=== PATIENT | male | born 1955 | race Caucasian/White ===

== ENCOUNTER → 2019-06-22 | Outpatient (CLI) | payer MEDICARE, OTHER ==
[2014-05-01 11:46] VITALS: BP 106/69
[~2019-06-22] MED LIST: ASPI-482 PO; ATOR10TA PO; CLOP75TA57 PO; FISH1CAP PO; IOHEXOL 300 MG/ML 75 ML VIAL. IV ONE; LIPITOR80 MG PO; LISI-338 PO; METO25TA2 PO; METO50TA4 PO; MULT-18 PO; OMEG300C PO
[2019-06-22 15:09] LABS: BASO % 1 % (0-3); EOS # 0.1 x10^3/uL (0.0-0.7); EOS % 2 % (0-3); HEMATOCRIT 46.9 % (39.0-53.0); HEMOGLOBIN 16.1 g/dL (13.0-17.5); LYMPH # 1.3 x10^3/uL (1.0-4.8); LYMPH % 23 % (24-48); MEAN CORPUSCULAR HEMOGLOBIN 32 pg (25-35); MEAN CORPUSCULAR HGB CONC 34 g/dL (31-37); MEAN CORPUSCULAR VOLUME 94 fL (79-100); MONO # 0.6 x10^3/uL (0.0-1.1); MONO % 10 % (0-9); NEUT # 3.8 x10^3uL (1.8-7.7); NEUT % 65 % (31-73); PLATELET COUNT 183 x10^3/uL (140-400); RED BLOOD COUNT 4.98 x10^6/uL (4.30-5.70); RED CELL DISTRIBUTION WIDTH 13.4 % (11.5-14.5); WHITE BLOOD COUNT 5.9 x10^3/uL (4.0-11.0)
[2019-06-22 15:11] LABS: ALBUMIN/GLOBULIN RATIO 1.1 (1.0-1.7); CALCIUM 8.8 mg/dL (8.5-10.1); CREATININE 1.1 mg/dL (0.7-1.3); GFR 67.2; POTASSIUM 4.9 mmol/L (3.5-5.1); TOTAL BILIRUBIN 1.2 mg/dL (0.2-1.0); TOTAL PROTEIN 7.6 g/dL (6.4-8.2)
--- NOTE | 2019-06-23 16:00 | RAD ---
CT SOFT TISSUE NECK W/CONTRAST History: Lump anterior neck. Technique: CT imaging was performed of the neck soft tissues with contrast. Coronal and sagittal reconstructions were performed. Exposure: One or more of the following individualized dose reduction techniques were utilized for this examination: 1. Automated exposure control 2. Adjustment of the mA and/or kV according to patient size 3. Use of iterative reconstruction technique. Comparison: None Findings: 0.7 x 0.6 cm hyperdense nodule with adjacent fat stranding within the anterior neck with the region of the patient's palpable concern. Superior to this region there is a mildly prominent submental lymph node measures 1.1 x 0.8 cm. No additional prominent lymph nodes. Normal appearance of the bilateral submandibular and parotid glands. Unremarkable thyroid gland. Imaged lung apices are unremarkable. Small right maxillary sinus mucous retention cysts or polyps. Mastoid air cells are clear. Imaged orbits and intracranial contents are unremarkable. Moderate multilevel cervical spondylosis most prominent C4-C5, C5-C6 and C6-C7. Impression: 1. Small nodule within the region of the patient's palpable abnormality in the anterior neck subcutaneous tissues, may represent reactive lymph node. Recommend continued clinical follow-up. If interval growth, recommend imaging follow-up and/or biopsy if indicated. Electronically signed by: Jhony Leigh DO (06/23/2019 3:57 PM) [id number]
== END | disposition home or self-care (01) ==
LOC: CT 14:18
PROVIDERS: ATTEND Family Medicine
DX: M48.02 Spinal stenosis, cervical region (principal); R22.1 Localized swelling, mass and lump, neck; R53.83 Other fatigue
CPT/HCPCS: 36415; 70491; 80053; 85025; Q9967

== ENCOUNTER 2020-06-06 14:24 | Inpatient (IN) | payer MEDICARE, OTHER ==
[~2020-06-06] VITALS: Ht 203.2 cm; Wt 91.7 kg
[~2020-06-06 14:24] MED LIST changes: -IOHEXOL 300 MG/ML 75 ML VIAL. IV ONE; -LISI-338 PO; +LISI-517 PO
[2020-06-06] MEDS ORDERED: IV NORMAL SALINE 1,000ML 1,000 ML IV ONE ×2 (14:45→15:30)
[2020-06-06] MEDS ORDERED: diphenhydrAMINE 50 MG/ML VIAL IVP ONE (14:45)
[2020-06-06] MEDS ORDERED: methylPREDNISolone SOD SUCC PF 125 MG/2 ML VIAL. IV ONE (14:45)
--- NOTE | 2020-06-06 14:51 | PHYS DOC ---
Past History Past Medical History: CAD, GERD, [place], Other Past Surgical History: No Surgical History, Other Smoking: Non-smoker, Quit Greater Than 1 Year Alcohol Use: None Drug Use: None General Adult EDM: Chief Complaint: ALLERGIC REACTION HPI: HPI: 64-year-old male presents emergency department today with shortness of breath throat swelling and a rash after being exposed to a food allergen (sunflower seeds). This all started just prior to arrival. He took 25 mg of oral Benadryl and an unknown amount of Zyrtec prior to arrival. He typically has an EpiPen but does not have one with him today. He is here with his daughter. He denies any fevers chills or cough. Location upper respiratory tract and skin. Duration constant. Mildly alleviated by oral Benadryl. Review of systems negative for chest pain. Positive for shortness of breath. He reports throat swelling but does not have stridor at this time. He denies tongue swelling. All other review of systems negative. 64-year-old male presenting with anaphylaxis from exposure to a food allergy. On arrival he is not in respiratory distress. He does have hives over his body. No stridor. No wheezing on pulmonary examination. Intramuscular epinephrine drawn off however the patient has coronary artery disease and history of [place] in the past. Epinephrine placed at bedside. In the interim we will give the patient IV Benadryl and IV corticosteroids. Multiple reexaminations taken place. Patient remains stable without worsening condition. Patient is still breathing comfortably without stridor and no wheezing on examination. His blood pressure did drop 1 time which improved with laying him flat. He is not having reflex tachycardia. This may have been related to the IV Benadryl given. While in the emergency department the patient improved substantially with improving feeling in his throat and improving rash. On final examination we took the oxygen off the patient and the patient's oxygen levels were in the 94% range. Because the patient does not have underlying lung disease, we elected to admit the patient for observation. In the interim we will get a chest x-ray and a D- dimer to exclude pulmonary embolism. I spoke to Dr. Cunha who accepts the patient for admission. Dr. Cunha will follow up on chest x-ray and D-dimer. Current Medications: Current Meds: Current Medications Medications (Trade) Dose Ordered Sig/Seb Start Time Stop Time Status Last Admin Dose Admin Diphenhydramine HCl (Benadryl) 25 mg 1X ONCE 06/06/20 14:45 06/06/20 14:46 DC 06/06/20 14:41 25 MG Epinephrine HCl (EPINEPHrine AMPULE) 0.3 mg 1X ONCE 06/06/20 14:30 06/06/20 14:34 DC Methylprednisolone Sodium Succinate (SOLU-Medrol 125MG VIAL) 125 mg 1X ONCE 06/06/20 14:45 06/06/20 14:46 DC 06/06/20 14:38 125 MG Sodium Chloride 1,000 ml @ 1,000 mls/hr 1X ONCE 06/06/20 14:45 06/06/20 15:44 06/06/20 14:41 1,000 MLS/HR Allergies: Allergies: Allergies Coded Allergies Type Severity Reaction Last Updated Verified No Known Drug Allergies 06/22/19 No Physical Exam: PE: Constitutional: Well developed, well nourished, no acute distress, non-toxic appearance. Not in respiratory distress. HENT: Normocephalic, atraumatic, bilateral external ears normal, oropharynx moist, no oral exudates, nose normal. [] No tongue swelling. Lips are not swollen. Mild swelling in the periorbital region bilaterally. Eyes: PERRLA, EOMI, conjunctiva normal, no discharge. [] Neck: Normal range of motion, no tenderness, supple, no stridor. [] Cardiovascular:Heart rate regular rhythm, no murmur [] Lungs & Thorax: Bilateral breath sounds clear to auscultation no wheezing. Abdomen: Bowel sounds normal, soft, no tenderness, no masses, no pulsatile masses. [] Skin: Warm, dry, no erythema, uticarial present on the upper extremities. Back: No tenderness, no CVA tenderness. [] Extremities: No tenderness, no cyanosis, no clubbing, ROM intact, no edema. [] Neurologic: Alert and oriented X 3, normal motor function, normal sensory function, no focal deficits noted. [] Psychologic: Affect normal, judgement normal, mood normal. [] EKG: EKG: [] Radiology/Procedures: Radiology/Procedures: [] Heart Score: Risk Factors: Risk Factors: DM, Current or recent (<one month) smoker, HTN, HLP, family history of CAD, obesity. Risk Scores: Score 0 - 3: 2.5% MACE over next 6 weeks - Discharge Home Score 4 - 6: 20.3% MACE over next 6 weeks - Admit for Clinical Observation Score 7 - 10: 72.7% MACE over next 6 weeks - Early Invasive Strategies Course & Med Decision Making: Course & Med Decision Making Pertinent Labs and Imaging studies reviewed. (See chart for details) [] Dragon Disclaimer: Dragon Disclaimer: This electronic medical record was generated, in whole or in part, using a voice recognition dictation system. Departure Departure: Impression: Primary Impression: Anaphylaxis Disposition: ADMITTED INPT THIS HOSP Condition: IMPROVED Referrals: VINAYAK CREWS MD (PCP) ANDREA NIELSEN MD Jun 06, 2020 14:51
[2020-06-06 15:29] LABS: BASO % 1 % (0-3); EOS # 0.1 x10^3/uL (0.0-0.7); EOS % 1 % (0-3); HEMATOCRIT 46.4 % (39.0-53.0); HEMOGLOBIN 15.5 g/dL (13.0-17.5); LYMPH # 1.4 x10^3/uL (1.0-4.8); LYMPH % 23 % (24-48); MEAN CORPUSCULAR HEMOGLOBIN 32 pg (25-35); MEAN CORPUSCULAR HGB CONC 33 g/dL (31-37); MEAN CORPUSCULAR VOLUME 96 fL (79-100); MONO # 0.6 x10^3/uL (0.0-1.1); MONO % 10 % (0-9); NEUT % 65 % (31-73); PLATELET COUNT 201 x10^3/uL (140-400); RED BLOOD COUNT 4.85 x10^6/uL (4.30-5.70); RED CELL DISTRIBUTION WIDTH 13.3 % (11.5-14.5); WHITE BLOOD COUNT 6.2 x10^3/uL (4.0-11.0)
[2020-06-06 15:40] LABS: CALCIUM 8.1 mg/dL (8.5-10.1); CREATININE 1.1 mg/dL (0.7-1.3); POTASSIUM 3.6 mmol/L (3.5-5.1)
--- NOTE | 2020-06-06 18:35 | RAD ---
INDICATION: Reason: hypoxia / Spl. Instructions: / History: COMPARISON: April 2014 FINDINGS: Single view of chest obtained. Cardiac silhouette is unremarkable. Degenerative changes the spine. Mild scoliotic curvature of spine . Air underneath right hemidiaphragm likely at loop of bowel in the region. No definite new region of consolidation. IMPRESSION: * No definite new region of airspace consolidation. Electronically signed by: Jay Cadet MD (06/06/2020 6:33 PM) [id number]
[2020-06-06 20:16] VITALS: BP 128/86
[2020-06-06] MEDS: ENOXAPARIN ** NOTE DOSE ** SYRINGE SQ SCH (21:00)
[2020-06-06] MEDS ORDERED: TAMS0.4C97 PO (21:07)
[2020-06-06] MEDS ORDERED: GABA-586 PO (21:07)
[2020-06-06] MEDS ORDERED: TRAZ-120 PO (21:07)
[2020-06-06] MEDS ORDERED: LORA0.5T21 PO (21:07)
[2020-06-06] MEDS ORDERED: diphenhydrAMINE HCL 25 MG CAPSULE PO PRN (21:15)
[2020-06-06] MEDS ORDERED: GABAPENTIN 300 MG CAPSULE. PO PRN (21:15)
[2020-06-06] MEDS ORDERED: diphenhydrAMINE HCL 25 MG CAPSULE PO ONE (21:15)
[2020-06-06] MEDS ORDERED: methylPREDNISolone SOD SUCC PF 40 MG/ML VIAL. IV ONE (21:15)
[2020-06-06 23:04] VITALS: BP 107/57
[2020-06-07 05:05] VITALS: BP 109/67
[2020-06-07 06:39] LABS: BASO % 0 % (0-3); EOS % 0 % (0-3); HEMATOCRIT 41.5 % (39.0-53.0); HEMOGLOBIN 14.1 g/dL (13.0-17.5); LYMPH # 0.8 x10^3/uL (1.0-4.8); LYMPH % 15 % (24-48); MEAN CORPUSCULAR HEMOGLOBIN 32 pg (25-35); MEAN CORPUSCULAR HGB CONC 34 g/dL (31-37); MEAN CORPUSCULAR VOLUME 95 fL (79-100); MONO # 0.2 x10^3/uL (0.0-1.1); MONO % 3 % (0-9); NEUT # 4.4 x10^3uL (1.8-7.7); NEUT % 82 % (31-73); PLATELET COUNT 201 x10^3/uL (140-400); RED BLOOD COUNT 4.36 x10^6/uL (4.30-5.70); RED CELL DISTRIBUTION WIDTH 13.2 % (11.5-14.5); WHITE BLOOD COUNT 5.3 x10^3/uL (4.0-11.0)
[2020-06-07 06:45] LABS: CALCIUM 7.7 mg/dL (8.5-10.1); GFR 74.8; POTASSIUM 4.3 mmol/L (3.5-5.1)
[2020-06-07] MEDS ORDERED: ASPIRIN ENTERIC COATED 81 MG TABLET.DR. PO SCH (09:00)
[2020-06-07] MEDS ORDERED: METOPROLOL SUCC 24HR ER 50 MG TAB.ER.24H. PO SCH (09:00)
[2020-06-07] MEDS ORDERED: TAMSULOSIN 0.4 MG CAP.ER.24H. PO SCH ×2 (09:00→21:00)
[2020-06-07] MEDS ORDERED: MULTIVITAMIN with MINERAL TABLET. PO SCH (09:00)
[2020-06-07] MEDS ORDERED: LISINOPRIL 5 MG TABLET. PO SCH (09:00)
[2020-06-07] MEDS ORDERED: LORazepam 0.5 MG TABLET PO SCH (09:00)
[2020-06-07] MEDS: ENOXAPARIN ** NOTE DOSE ** SYRINGE SQ SCH (09:22)
[2020-06-07] MEDS ORDERED: ATORVASTATIN CALCIUM 20 MG TABLET PO SCH (10:00)
[2020-06-07 10:46] VITALS: BP 109/70
[2020-06-07] MEDS ORDERED: IOHEXOL 350 MG/ML 100 ML VIAL. IV ONE (12:15)
[2020-06-07 14:59] VITALS: BP 121/77
--- NOTE | 2020-06-07 17:28 | RAD ---
PQRS Compliance Statement: One or more of the following individualized dose reduction techniques were utilized for this examinat ion: 1. Automated exposure control 2. Adjustment of the mA and/or kV according to patient size 3. Use of iterative reconstruction technique CT CHEST WITH CONTRAST, PULMONARY ANGIOGRAM History: Reason: sob and + d dimer / Spl. Instructions: / History: Comparison: None. Technique: Helical CT of the chest was performed after the administration of 100 cc of Omnipaque 300 intravenous contrast according to PE protocol. Axial and coronal reconstructions were obtained. 3- D MIP images were constructed to better evaluate the pulmonary arteries. Findings: Pulmonary arteries are adequately opacified. There is no evidence of pulmonary embolism. There is no thoracic aortic dissection. The thyroid is symmetric. There is coronary artery disease. T here is no adenopathy in the chest. The cardiac size is normal, no pericardial effusion. There is no pleural effusion. The central airways are patent. Incidental azygos fissure. Small ground glass opacity in the anterior left upper lobe may be infectious/inflammatory, image 44. There is a 4 mm noncalcified nodule in the lateral left lower lobe, image 74. There is minimal bilateral dependent atelectasis. Cholecystectomy. There is a 2 mm nonobstructing right renal calculus. Degenerative spondylosis of the thoracic spine. No acute bone abnormality. IMPRESSION: 1. There is no pulmonary embolus. 2. Small groundglass nodule in the left upper lobe may be infectious/inflammatory. 3. There is a 4 mm noncalcified nodule in the left lower lobe. Consider CT chest follow-up in 12 mon ths if patient has risk factors for lung malignancy, otherwise no follow-up is required per Fleischne r Society guidelines. 4. Nonobstructing right renal calculus. Electronically signed by: Denis Boyd MD (06/07/2020 5:25 PM) [id number]
[2020-06-07] MEDS ORDERED: METH4TAB2 PO ×3 (17:53→17:59)
--- NOTE | 2020-06-07 18:23 | NUR ---
Discharge Note: REBECCA PRO [address] Discharge instructions and discharge home medications reviewed with Patient and a copy given. All questions have been answered and understanding verbalized. Medrol pack 4mg called into [facility] pharmacy. Patient discharged to Home or Self Care with Self and ambulated to daughter's car without difficulty.
[2020-06-07] MEDS ORDERED: traZODone 50 MG TABLET. PO SCH (21:00)
--- NOTE | 2020-06-08 09:35 | HP ---
ADMIT DATE: HISTORY OF PRESENT ILLNESS: A 64-year-old male came in with increased shortness of breath, apparently had eaten sunflower seeds and he knew he was allergic to them, but he ate them accidentally. He began to have difficulty breathing. He had an anaphylactic reaction. His throat swelled up. He was short of breath and the patient was in severe distress when he came into the Emergency Room. He did not have his EpiPen with him. He did take some Benadryl to help relieve some of the symptoms, but he was still having difficulty breathing and some respiratory distress when he came in. Through the Emergency Room, he was given epinephrine intramuscularly; however, epinephrine was held up because of his history of coronary artery disease and like, although he was given IV Benadryl and corticosteroids, which seemed to help him. He was still somewhat having trouble with breathing, so he was admitted for observation. He did have some variation in his blood pressure and the patient was admitted to the hospital for observation. PAST MEDICAL HISTORY: Includes heart attack in 2008, coronary artery disease, cardiac catheterization, hypercholesterolemia, hypertension, vasectomy, bladder cancer, BCG therapy ended in 2019, starts chemo in 09/2020, BPH, urinary retention, degenerative disk disease, back pain, anxiety, alcohol use, history of smoking, although quit smoking in 1979, recent life stress, passed last week for COVID, smoking exposure, 3 years cancer, influenza vaccine up-to-date. Sleep difficulties. FAMILY HISTORY: Family members with diabetes, cardiovascular disease and hypercholesterolemia. ALLERGIES: SIGNIFICANT ALLERGY ANAPHYLAXIS TO SUNFLOWER SEEDS. SOCIAL HISTORY: Presently denies smoking, alcohol or drug use. REVIEW OF SYSTEMS: The patient denies any headaches, visual changes, blurred vision, double vision. Denies any loss of incontinence. Does have some mild shortness of breath, some wheezing occasionally, tightness in his throat with lip swelling. Neurologically stable. No problem with bowels or bladder at this time. PHYSICAL EXAMINATION: GENERAL: This is a pleasant white male, moderate amount of distress, fairly anxious. VITAL SIGNS: Initially, blood pressure approximately 78/35, respiratory rate 15, pulse 107, afebrile. He was at 90% on room air, 2 liters at 98. HEENT: The patient's head was atraumatic, normocephalic. Eyes: PERRLA. Mouth and throat were normal. The lips are slightly still swollen. Tongue is slightly swollen. NECK: Supple. LUNGS: Clear. CARDIOVASCULAR: Regular sinus rhythm, S1, S2, without murmur, rub, thrill, or extra heart sound. ABDOMEN: Soft, nontender, no rebounding, no guarding. Positive bowel sounds, no hepatosplenomegaly was noted. EXTREMITIES: No clubbing, cyanosis, nor edema. NEUROLOGIC: The patient was alert and oriented x 3. LABORATORY DATA: Significant elevation of D-dimer of 17, could be related to the anaphylaxis; however, due to increased shortness of breath, we will do a CTA on him on that. CBC was unremarkable. Chemistries outside of an elevated blood sugar of 125 was elevated, but otherwise sodium, potassium, BUN and creatinine all within normal limits. CTA was finally obtained. No PE. Does see a small ground glass nodule in the left upper lobe, may be infectious, 4 mm noncalcified nodule, left lower lobe. Consider CT followup in 12 months. Otherwise, the patient tolerated the hospitalization well as continued on his Benadryl, Medrol Dosepak. 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 If he has another anaphylactic reaction obviously told to get a medical alert bracelet for his sunflower seed allergy. VINAYAK CREWS MD DR: JUSTIN/jaden JOB#: [id number] / [id number]
== END 2020-06-07 18:23 | disposition home or self-care (01) | DRG 916 ==
LOC: ER 14:24 → 1 SOUTH 19:36
PROVIDERS: ADMIT Family Medicine; ATTEND Family Medicine
DX: T78.05XA Anaphylactic reaction due to tree nuts and seeds, initial encounter (principal); E78.00 Pure hypercholesterolemia, unspecified; I10 Essential (primary) hypertension; I25.10 Atherosclerotic heart disease of native coronary artery without angina pectoris; I25.2 Old myocardial infarction; N40.0 Benign prostatic hyperplasia without lower urinary tract symptoms; Z82.49 Family history of ischemic heart disease and other diseases of the circulatory system; Z83.3 Family history of diabetes mellitus; Z85.51 Personal history of malignant neoplasm of bladder; Z87.891 Personal history of nicotine dependence; Z92.21 Personal history of antineoplastic chemotherapy; F41.9 Anxiety disorder, unspecified; K21.9 Gastro-esophageal reflux disease without esophagitis; X58.XXXA Exposure to other specified factors, initial encounter; Y93.89 Activity, other specified; Y92.89 Other specified places as the place of occurrence of the external cause; Y99.8 Other external cause status; Z91.018 Allergy to other foods
CPT/HCPCS: 36415; 71045; 71275; 80048; 83880; 85025; 85379; 96361; 96374; 96375; J1200; J1650; J2920; J2930; Q0163; Q9967; 99285-25; J7030

== ENCOUNTER 2020-07-06 11:03 | Emergency (ER) | payer MEDICARE, OTHER ==
[~2020-07-06] VITALS: Ht 203.2 cm; Wt 91.7 kg
[~2020-07-06 11:03] MED LIST changes: +GABA-586 PO; +LORA0.5T21 PO; +METH4TAB2 PO; +TAMS0.4C97 PO; +TRAZ-120 PO
[2020-07-06] MEDS ORDERED: ASPIRIN CHEWABLE 81 MG TABLET. PO ONE (11:15)
--- NOTE | 2020-07-06 11:27 | EKG ---
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
[2020-07-06 11:34] LABS: BASO % 1 % (0-3); EOS # 0.1 x10^3/uL (0.0-0.7); EOS % 3 % (0-3); HEMATOCRIT 44.7 % (39.0-53.0); HEMOGLOBIN 15.4 g/dL (13.0-17.5); LYMPH # 1.4 x10^3/uL (1.0-4.8); LYMPH % 26 % (24-48); MEAN CORPUSCULAR HEMOGLOBIN 33 pg (25-35); MEAN CORPUSCULAR HGB CONC 35 g/dL (31-37); MEAN CORPUSCULAR VOLUME 95 fL (79-100); MONO # 0.5 x10^3/uL (0.0-1.1); MONO % 9 % (0-9); NEUT # 3.3 x10^3uL (1.8-7.7); NEUT % 61 % (31-73); PLATELET COUNT 175 x10^3/uL (140-400); RED BLOOD COUNT 4.72 x10^6/uL (4.30-5.70); RED CELL DISTRIBUTION WIDTH 13.4 % (11.5-14.5); WHITE BLOOD COUNT 5.4 x10^3/uL (4.0-11.0)
[2020-07-06 12:07] LABS: CALCIUM 8.8 mg/dL (8.5-10.1); CREATININE 0.9 mg/dL (0.7-1.3); GFR 84.4; POTASSIUM 4.2 mmol/L (3.5-5.1)
--- NOTE | 2020-07-06 12:09 | RAD ---
Chest radiograph 07/06/2020 11:36 AM INDICATION: Chest pain COMPARISON: June 06, 2020 TECHNIQUE: Frontal and lateral views of the chest are provided. FINDINGS: The cardiomediastinal silhouette is within normal limits. There are no pleural effusions. There is no pulmonary vascular congestion. There is no pneumothorax. The lungs are clear. No significant osseous abnormality is identified. IMPRESSION: No acute cardiopulmonary process. Electronically signed by: Geneva Lemos MD (07/06/2020 12:07 PM) [id number]
[2020-07-06] MEDS ORDERED: METHOCARBAMOL 500 MG TABLET PO ONE (13:30)
[2020-07-06 15:00] VITALS: BP 137/91
--- NOTE | 2020-07-06 15:17 | PHYS DOC ---
Past History Past Medical History: CAD, Cancer, High Cholesterol, Hypertension, Other Additional Past Medical Histor: BLADDER CANCER Past Surgical History: Other Additional Past Surgical Histo: BACK SURGERY; KNEE SURGERY Smoking: Non-smoker, Quit Greater Than 1 Year Alcohol Use: Occasionally Drug Use: None Adult General Chief Complaint Chief Complaint: CHEST PAIN HPI HPI Patient is a 64-year-old male who presents to the emergency room with chest tightness and a tingling sensation down to his right shoulder to mid arm. He states that he went to the gym earlier this morning and his workout went normal. On his way home from the gym he started having a tingling sensation and then noticed the chest tightness. He denies any associated symptoms. This does not feel like his prior heart attack. He does not have any kind of dizziness. He does not remember pulling anything at the gym. Review of Systems Review of Systems Complete ROS is negative unless otherwise documented in HPI Current Medications Current Medications Current Medications Medications (Trade) Dose Ordered Sig/Seb Start Time Stop Time Status Last Admin Dose Admin Aspirin (Aspirin Chewable) 324 mg 1X ONCE 07/06/20 11:15 07/06/20 11:16 DC 07/06/20 11:46 324 MG Methocarbamol (Robaxin) 500 mg 1X ONCE 07/06/20 13:30 07/06/20 13:31 DC 07/06/20 14:36 500 MG Allergies Allergies Allergies Coded Allergies Type Severity Reaction Last Updated Verified sunflower seed Allergy Severe Anaphylaxis 06/06/20 Yes Physical Exam Physical Exam General: Awake, alert, NAD. Well Nourished, well hydrated. Cooperative HEENT: Atraumatic, EOMI, PERRL, airway patent, moist oral mucosa Neck: Supple, trachea midline Respiratory: CTA bilaterally, normal effort, no wheezing/crackles CV: RRR, no murmur, cap refill <2 GI: Soft, nondistended, nontender, no masses MSK: No obvious deformities Skin: Warm, dry, intact Neuro: A&O x3, speech NL, sensory and motor grossly intact, no focal deficits Psych: Normal affect, normal mood, not suicidal or homicidal Current Patient Data Vital Signs Vital Signs Date Time Temp Pulse Resp B/P (MAP) Pulse Ox O2 Delivery O2 Flow Rate FiO2 07/06/20 13:00 65 16 127/86 (100) 96 Room Air 07/06/20 11:07 97.9 Lab Results Laboratory Tests Test 07/06/20 11:12 07/06/20 14:00 White Blood Count 5.4 x10^3/uL (4.0-11.0) Red Blood Count 4.72 x10^6/uL (4.30-5.70) Hemoglobin 15.4 g/dL (13.0-17.5) Hematocrit 44.7 % (39.0-53.0) Mean Corpuscular Volume 95 fL (79-100) Mean Corpuscular Hemoglobin 33 pg (25-35) Mean Corpuscular Hemoglobin Concent 35 g/dL (31-37) Red Cell Distribution Width 13.4 % (11.5-14.5) Platelet Count 175 x10^3/uL (140-400) Neutrophils (%) (Auto) 61 % (31-73) Lymphocytes (%) (Auto) 26 % (24-48) Monocytes (%) (Auto) 9 % (0-9) Eosinophils (%) (Auto) 3 % (0-3) Basophils (%) (Auto) 1 % (0-3) Neutrophils # (Auto) 3.3 x10^3uL (1.8-7.7) Lymphocytes # (Auto) 1.4 x10^3/uL (1.0-4.8) Monocytes # (Auto) 0.5 x10^3/uL (0.0-1.1) Eosinophils # (Auto) 0.1 x10^3/uL (0.0-0.7) Basophils # (Auto) 0.0 x10^3/uL (0.0-0.2) Sodium Level 140 mmol/L (136-145) Potassium Level 4.2 mmol/L (3.5-5.1) Chloride Level 104 mmol/L (98-107) Carbon Dioxide Level 28 mmol/L (21-32) Anion Gap 8 (6-14) Blood Urea Nitrogen 11 mg/dL (8-26) Creatinine 0.9 mg/dL (0.7-1.3) Estimated GFR (Cockcroft-Gault) 84.4 Glucose Level 117 mg/dL (70-99) H Calcium Level 8.8 mg/dL (8.5-10.1) Troponin I Quantitative < 0.017 ng/mL (0-0.055) < 0.017 ng/mL (0-0.055) DX-Wmm-R-Type Natriuretic Peptide 71 pg/mL (0-124) EKG EKG [] Radiology/Procedures Radiology/Procedures [] Heart Score Risk Factors: Risk Factors: DM, Current or recent (<one month) smoker, HTN, HLP, family history of CAD, obesity. Risk Scores: Risk Factors: DM, Current or recent (<one month) smoker, HTN, HLP, family history of CAD, obesity. Course & Med Decision Making Course & Med Decision Making Pertinent Labs and Imaging studies reviewed. (See chart for details) Patient is 64-year-old male presents to the emergency room with some chest tightness and at paresthesias in his right shoulder and upper arm. This could be related to a cervical radiculopathy as his paresthesias are his main symptom. Given patient's history of cardiac disease will order a cardiac work-up. EKG shows normal sinus rhythm without any ischemic changes. Troponin is negative. A delta troponin was done and is also negative. Patient feels some better while here in the emergency room. He does have a cardiology appointment at the beginning next week where they plan on doing a cardiac stress test. I discussed with the patient that if he developed any further chest pain he should come back to the emergency room. 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 Patient's test results and vitals while in the ED were fully reviewed and discussed with the patient. Patient is stable and at this time does not need admission to the hospital. We have discussed strict return precautions and the importance of following up with their Primary Care Physician. Patient stated understanding and was given an opportunity to ask any questions. Patient is in agreement with plan. Dragon Disclaimer Dragon Disclaimer This electronic medical record was generated, in whole or in part, using a voice recognition dictation system. Departure Departure: Impression: Primary Impression: Chest pain Disposition: 01 DC HOME SELF CARE/HOMELESS Condition: STABLE Referrals: VINAYAK CREWS MD (PCP) Patient Instructions: Chest Pain (Nonspecific) BOBY CAMPO MD Jul 06, 2020 15:17
[2020-07-06] MEDS ORDERED: DEXAMETHASONE SOD PHOS 10 MG/ML VIAL. IVP ONE (15:30)
== END 2020-07-06 15:32 | disposition home or self-care (01) ==
LOC: ER 11:03
DX: R07.89 Other chest pain (principal); R20.2 Paresthesia of skin; M25.511 Pain in right shoulder; I10 Essential (primary) hypertension; E78.00 Pure hypercholesterolemia, unspecified; I25.10 Atherosclerotic heart disease of native coronary artery without angina pectoris; Z87.891 Personal history of nicotine dependence; Z91.018 Allergy to other foods
CPT/HCPCS: 36415; 71046; 80048; 83880; 84484; 85025; 93005; 96374; 99285; J1100

== ENCOUNTER 2020-12-15 03:03 | Emergency (ER) | payer MEDICARE, OTHER ==
[~2020-12-15] VITALS: Ht 203.2 cm; Wt 91.7 kg
--- NOTE | 2020-12-15 03:10 | PHYS DOC ---
Past History Past Medical History: Alcoholism, CAD, Cancer, High Cholesterol, Hypertension, Kidney Stones, Other Additional Past Medical Histor: BLADDER CANCER Past Surgical History: Cholecystectomy, Other Additional Past Surgical Histo: BACK SURGERY; KNEE SURGERY Smoking: Non-smoker, Quit Greater Than 1 Year Alcohol Use: Occasionally Drug Use: None General Adult HPI: HPI: "...I thilnk .. I am having another kidney stone.. I ve had 2 the 3 prior episode.. in 2019 . I had to have lithotripsy.. to break one up.. It is here on my right.. it started hurting really bad about 1:00 am..." Patient is a 65 year old male who presents with above hx and complaints severe right flank pain radiating to his groin. Onset of pain started about 0100 hrs. Patient has had had blood in his urine. Patient denies any trauma. Patient does have a history of 2-3 prior kidney stones. Did have a lithotripsy for stones in 2019 in [place]. Patient denies any recent travel. Patient denies any specific ill contacts. No history of immunosuppression. Does have a history of diverticulitis and bladder cancer. Patient also has history of [place] in 2008, coronary artery disease with cath, hypercholesterol, hypertension, patient bladder cancer has been treated with BCG therapy starting in 2019. After which he was started on chemotherapy and 2020. Does have a history of BPH, urinary retention, degenerative disc disease, chronic back pain, anxiety, alcohol use, tobacco use, insomnia. Patient has been exposed to Covid. from Covid.In May of this year. Patient does have a significant allergy to sunflower seeds which causes anaphylaxis. Insomnia patient normally follows with Dr. Crews. Review of Systems: Review of Systems: Constitutional: Denies fever or chills Eyes: Denies change in visual acuity HENT: Denies nasal congestion or sore throat Respiratory: Denies cough or shortness of breath Cardiovascular: Denies chest pain or edema GI: Complains of right flank abdominal pain, nausea. Denies, vomiting, bloody stools or diarrhea : Complains of hematuria Musculoskeletal: Complains of right flank back pain Integument: Denies rash Neurologic: Denies headache, focal weakness or sensory changes Endocrine: Denies polyuria or polydipsia Lymphatic: Denies swollen glands Psychiatric: Denies depression or anxiety Family History: Family History: Noncontributory Current Medications: Current Meds: See nursing for home meds Allergies: Allergies: Allergies Coded Allergies Type Severity Reaction Last Updated Verified sunflower seed Allergy Severe Anaphylaxis 06/06/20 Yes Physical Exam: PE: Constitutional:in acute distress, non-toxic appearance. [] HENT: Normocephalic, atraumatic, bilateral external ears normal, oropharynx moist, no oral exudates, nose normal. [] Eyes: PERRLA, EOMI, conjunctiva normal, no discharge. [] Neck: Normal range of motion, no tenderness, supple, no stridor. [] Cardiovascular:Heart rate regular rhythm, no murmur [] Lungs & Thorax: Bilateral breath sounds equal apex on auscultation [] few scattered wheezes Abdomen: Bowel sounds decreased, soft, right flank tenderness, no masses, no pulsatile masses. [] Old surgical scar. Skin: Warm, dry, no erythema, no rash. [] Back: No tenderness, right CVA tenderness. [] Extremities: No tenderness, no cyanosis, no clubbing, ROM intact, no edema. No cording appreciated. No psoas sign. Neurologic: Alert and oriented X 3, normal motor function, normal sensory function, no focal deficits noted. [] Psychologic: Affect anxious, , judgement normal, mood normal. [] EKG: EKG: My interpretation EKG shows a sinus rhythm at 67 bpm. No findings of acute STEMI of contralateral changes. Time of EKG is 349 hours [] Radiology/Procedures: Radiology/Procedures: [[address] [address] IMAGING REPORT Signed PATIENT: REBECCA PRO ACCOUNT: [id number] : 1955 LOCATION: ER AGE: 65 SEX: M EXAM STATUS: REG ER ORD. PHYSICIAN: CASSIE BLANCO MD REASON: jose PROCEDURE: CT ABDOMEN PELVIS WO CONTRAST Study: CT abdomen/pelvis without intravenous contrast Indication: Abdominal pain. Comparison: Correlation is made to a CT chest from 06/07/2020 Technique: Helical CT imaging performed of the abdomen and pelvis without the use of intravenous contrast. Sagittal and coronal reformats were obtained. One or more of the following individualized dose reduction techniques were utilized for this examination: 1. Automated exposure control 2. Adjustment of the mA and/or kV according to patient size 3. Use of iterative reconstruction technique. Findings: Inherently limited evaluation without intravenous contrast. Unchanged 4 mm left lower lobe nodule. Smaller nodule along the left major fissure is unchanged as well. No focal hepatic parenchymal abnormality. Surgically absent gallbladder. Within normal limits biliary tree, pancreas, spleen and adrenal glands. Mild pelviectasis and ureteral dilatation on the right with surrounding edema. A 3.5 mm stone is seen within the base of the urinary bladder. Small nonobstructing intrarenal stone on the right. Incompletely characterized but cystic density focus within the mid left kidney on image 49 series 3 measuring no more than a centimeter. Mild circumferential urinary bladder wall thickening in the setting of a prominent prostate that measures 4.8 cm transverse. Median lobe hypertrophy. Colonic diverticulosis without diverticulitis. Mild constipation. Unremarkable appendix. Nonobstructed small bowel. Thickening of the gastric wall at the fundus and proximal body that is highly likely physiologic from underdistention given no wall thickening on the 06/07/2020 CT chest. Scattered calcific atherosclerosis and vessel tortuosity. Nonaneurysmal aorta. No lymphadenopathy. Small fat-containing bilateral inguinal hernias. Osteopenia. Multifocal degenerative changes. A few bone islands. Central canal stenosis appearing greatest at L4-L5. Multilevel neural foraminal stenosis. Impression: 1. Mild collecting system dilatation on the right with adjacent edema favored related to a recently passed 3.5 mm stone which is layering within the urinary bladder. Additional nonobstructing intrarenal stone on the right. 2. Mild constipation. 3. Prominence of the prostate gland and median lobe hypertrophy. The presence of urinary bladder wall thickening raises the question of chronic bladder outlet obstruction. 4. Left lower lobe pulmonary nodule 4 mm. Follow-up recommendations described on the 06/07/2020 CT chest. 5. Additional chronic observations as above. Electronically signed by: BOZENA HORNER MD (12/15/2020 4:42 AM) [facility] DICTATED AND SIGNED BY: BOZENA HORENR MD DATE: 12/15/20 0435 CC: VINAYAK CREWS MD; CASSIE BLANCO MD ~[facility] 0 ][address] [address] IMAGING REPORT Signed PATIENT: REBECCA PRO ACCOUNT: [id number] : 1955 LOCATION: ER AGE: 65 SEX: M EXAM STATUS: REG ER ORD. PHYSICIAN: CASSIE BLANCO MD REASON: abd. pain PROCEDURE: ACUTE ABDOMEN SERIES Study: XR ABDOMEN COMP ACUTE Indication: Abdominal pain. Comparison: None. Findings: Within normal limits cardiomediastinal silhouette and flower. Variant anatomy azygos fissure. No focal airspace abnormality, pleural effusion or pneumothorax. Gaseous distention of small and large bowel without pathologic dilatation. No pneumoperitoneum. Right upper quadrant surgical clips. Sigmoid curvature of the thoracolumbar spine on a background of multilevel spondylosis. Mild volume colonic stool burden. Impression: Nonobstructive bowel gas pattern. Electronically signed by: BOZENA HORNER MD (12/15/2020 4:35 AM) [facility] DICTATED AND SIGNED BY: BOZENA HORNER MD DATE: 12/15/20432 CC: VINAYAK CREWS MD; CASSIE BLANCO MD ~MTH0 0 Heart Score: C/O Chest Pain: N/A HEART Score for Chest Pain: HEART Score for Chest Pain Response (Comments) Value History Slighlty/Non-Suspicious 0 ECG Normal 0 Age > 65 2 Risk Factors 1 or 2 Risk Factors 1 Troponin < Normal Limit 0 Total 3 Risk Factors: Risk Factors: DM, Current or recent (<one month) smoker, HTN, HLP, family history of CAD, obesity. Risk Scores: Score 0 - 3: 2.5% MACE over next 6 weeks - Discharge Home Score 4 - 6: 20.3% MACE over next 6 weeks - Admit for Clinical Observation Score 7 - 10: 72.7% MACE over next 6 weeks - Early Invasive Strategies Course & Med Decision Making: Course & Med Decision Making Pertinent Labs and Imaging studies reviewed. (See chart for details) Patient reports clearing of his right flank pain. Patient requesting discharge. Patient to push fluids. Patient follow-up primary care. Patient follow-up with urology. Patient follow-up oncologist. Patient take Flomax daily if still having renal colic. Patient to take Tylenol and ibuprofen for pain more pain may take Vicoprofen up to 4 times a day. Patient to take Zofran 8 mg up to 4 times a day for nausea and vomiting. Patient return if any concerns. Impression: 1. Renal colic-right 2. History of bladder cancer 3. Hematuria [] Dragon Disclaimer: Dragon Disclaimer: This electronic medical record was generated, in whole or in part, using a voice recognition dictation system. Departure Departure: Referrals: VINAYAK CREWS MD (PCP) Scripts Tamsulosin Hcl (FLOMAX) 0.4 Mg Cap.er.24h 0.4 MG PO DAILY for renal colic, #30 CAP.SR Prov: CASSIE BLANCO MD 12/15/20 Hydrocodone/Ibuprofen (HYDROCODONE-IBUPROFEN 7.5-200 ) 1 Each Tablet 1 TAB PO PRN Q6HRS PRN for PAIN, #30 TAB 0 Refills Prov: CASSIE BLANCO MD 12/15/20 Ondansetron Hcl (ZOFRAN) 4 Mg Tablet 8 MG PO QIDPRN for nv, #30 TAB Prov: CASSIE BLANCO MD 12/15/20 Dragon Disclaimer This chart was dictated in whole or in part using Voice Recognition software in a busy, high-work load, and often noisy Emergency Department environment. It may contain unintended and wholly unrecognized errors or omissions. Dragon Disclaimer This chart was dictated in whole or in part using Voice Recognition software in a busy, high-work load, and often noisy Emergency Department environment. It may contain unintended and wholly unrecognized errors or omissions. CASSIE BLANCO MD Dec 15, 2020 03:10
[2020-12-15] MEDS ORDERED: IV RINGERS SOLUTION,LACTATED 1,000 ML IV SCH (03:30)
[2020-12-15] MEDS ORDERED: FAMOTIDINE 20 MG/2 ML VIAL IVP ONE (03:30)
[2020-12-15] MEDS ORDERED: ONDANSETRON PF 4 MG/2 ML VIAL. IVP ONE (03:30)
[2020-12-15] MEDS ORDERED: KETOROLAC 30 MG/ML VIAL. IVP ONE (03:30)
[2020-12-15] MEDS ORDERED: TAMSULOSIN 0.4 MG CAP.ER.24H. PO ONE (04:00)
[2020-12-15 04:29] LABS: BASO % 0 % (0-3); EOS # 0.1 x10^3/uL (0.0-0.7); EOS % 1 % (0-3); HEMATOCRIT 43.5 % (39.0-53.0); HEMOGLOBIN 14.8 g/dL (13.0-17.5); LYMPH # 1.1 x10^3/uL (1.0-4.8); LYMPH % 13 % (24-48); MEAN CORPUSCULAR HEMOGLOBIN 33 pg (25-35); MEAN CORPUSCULAR HGB CONC 34 g/dL (31-37); MEAN CORPUSCULAR VOLUME 98 fL (79-100); MONO # 0.6 x10^3/uL (0.0-1.1); MONO % 7 % (0-9); NEUT % 79 % (31-73); PLATELET COUNT 158 x10^3/uL (140-400); RED BLOOD COUNT 4.44 x10^6/uL (4.30-5.70); RED CELL DISTRIBUTION WIDTH 14.1 % (11.5-14.5); WHITE BLOOD COUNT 8.9 x10^3/uL (4.0-11.0)
--- NOTE | 2020-12-15 04:37 | RAD ---
Study: XR ABDOMEN COMP ACUTE Indication: Abdominal pain. Comparison: None. Findings: Within normal limits cardiomediastinal silhouette and flower. Variant anatomy azygos fissure. No focal airspace abnormality, pleural effusion or pneumothorax. Gaseous distention of small and large bowel without pathologic dilatation. No pneumoperitoneum. Right upper quadrant surgical clips. Sigmoid curvature of the thoracolumbar spine on a background of multilevel spondylosis. Mild volume colonic stool burden. Impression: Nonobstructive bowel gas pattern. Electronically signed by: BOZENA HORNER MD (12/15/2020 4:35 AM) [facility]
--- NOTE | 2020-12-15 04:45 | RAD ---
Study: CT abdomen/pelvis without intravenous contrast Indication: Abdominal pain. Comparison: Correlation is made to a CT chest from 06/07/2020 Technique: Helical CT imaging performed of the abdomen and pelvis without the use of intravenous cont rast. Sagittal and coronal reformats were obtained. One or more of the following individualized dose reduction techniques were utilized for this examinat ion: 1. Automated exposure control 2. Adjustment of the mA and/or kV according to patient size 3. Use of iterative reconstruction technique. Findings: Inherently limited evaluation without intravenous contrast. Unchanged 4 mm left lower lobe nodule. Smaller nodule along the left major fissure is unchanged as we ll. No focal hepatic parenchymal abnormality. Surgically absent gallbladder. Within normal limits biliary tree, pancreas, spleen and adrenal glands. Mild pelviectasis and ureteral dilatation on the right with surrounding edema. A 3.5 mm stone is seen within the base of the urinary bladder. Small nonobstructing intrarenal stone on the right. Incomple tely characterized but cystic density focus within the mid left kidney on image 49 series 3 measuring no more than a centimeter. Mild circumferential urinary bladder wall thickening in the setting of a prominent prostate that ravi ures 4.8 cm transverse. Median lobe hypertrophy. Colonic diverticulosis without diverticulitis. Mild constipation. Unremarkable appendix. Nonobstructe d small bowel. Thickening of the gastric wall at the fundus and proximal body that is highly likely p hysiologic from underdistention given no wall thickening on the 06/07/2020 CT chest. Scattered calcific atherosclerosis and vessel tortuosity. Nonaneurysmal aorta. No lymphadenopathy. Sm all fat-containing bilateral inguinal hernias. Osteopenia. Multifocal degenerative changes. A few bone islands. Central canal stenosis appearing gre atest at L4-L5. Multilevel neural foraminal stenosis. Impression: 1. Mild collecting system dilatation on the right with adjacent edema favored related to a recently passed 3.5 mm stone which is layering within the urinary bladder. Additional nonobstructing intrarena l stone on the right. 2. Mild constipation. 3. Prominence of the prostate gland and median lobe hypertrophy. The presence of urinary bladder wal l thickening raises the question of chronic bladder outlet obstruction. 4. Left lower lobe pulmonary nodule 4 mm. Follow-up recommendations described on the 06/07/[address] 5. Additional chronic observations as above. Electronically signed by: BOZENA HORNER MD (12/15/2020 4:42 AM) [facility]
[2020-12-15 04:46] LABS: BILIRUBIN,URINE NEG (NEG); CLARITY,URINE CLOUDY; COLOR,URINE AMBER; GLUCOSE,URINE NEG (NEG); NITRITE,URINE NEG (NEG); UROBILINOGEN,URINE 0.2 mg/dL (0.2 mg/dL)
[2020-12-15 04:47] LABS: RBC,URINE TNTC /HPF (0-2); WBC,URINE RARE /HPF (0-4)
[2020-12-15 04:48] LABS: BACTERIA,URINE 0 /HPF (0-FEW)
[2020-12-15 04:53] LABS: CREATININE 1.1 mg/dL (0.7-1.3); GFR 66.8; POTASSIUM 4.1 mmol/L (3.5-5.1)
[2020-12-15 05:02] LABS: ALBUMIN 3.5 g/dL (3.4-5.0); DIRECT BILIRUBIN 0.2 mg/dL (0.0-0.2); TOTAL PROTEIN 6.2 g/dL (6.4-8.2)
[2020-12-15 05:02] LABS: BARBITURATES NEG (NEG); BENZODIAZEPINES NEG (NEG); CANNABINOIDS NEG (NEG); COCAINE NEG (NEG); METHADONE NEG (NEG); OPIATES NEG (NEG); PHENCYCLIDINE NEG (NEG)
[2020-12-15 05:03] LABS: AMPHETAMINE/METHAMPHETAMINE NEG (NEG)
--- NOTE | 2020-12-15 05:11 | EKG ---
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
[2020-12-15] MEDS ORDERED: HYDR-1179 PO (06:40)
[2020-12-15] MEDS ORDERED: ONDA4TAB7 PO (06:40)
[2020-12-15] MEDS ORDERED: TAMS0.4C97 PO (06:49)
[2020-12-15 06:50] VITALS: BP 134/72
== END 2020-12-15 06:59 | disposition home or self-care (01) ==
LOC: ER 03:03
DX: N23 Unspecified renal colic (principal); R31.9 Hematuria, unspecified; Z85.51 Personal history of malignant neoplasm of bladder; I25.2 Old myocardial infarction; I25.10 Atherosclerotic heart disease of native coronary artery without angina pectoris; E78.00 Pure hypercholesterolemia, unspecified; I10 Essential (primary) hypertension; G89.29 Other chronic pain; Z87.442 Personal history of urinary calculi; Z90.49 Acquired absence of other specified parts of digestive tract; Z87.891 Personal history of nicotine dependence
CPT/HCPCS: 36415; 74022; 74176; 80048; 80076; 80307; 81001; 82550; 83690; 84484; 85025; 93005; 96361; 96374; 96375; 99285; J1885; J2405; J3490; J7120

== ENCOUNTER 2021-01-14 19:54 | Emergency (ER) | payer MEDICARE, OTHER ==
[~2021-01-14] VITALS: Ht 182.9 cm; Wt 88.0 kg
[~2021-01-14 19:54] MED LIST changes: +HYDR-1179 PO; +ONDA4TAB7 PO
--- NOTE | 2021-01-14 20:01 | PHYS DOC ---
Past History Past Medical History: Alcoholism, CAD, Cancer, High Cholesterol, Hypertension, Kidney Stones, Other Additional Past Medical Histor: BLADDER CANCER Past Surgical History: Cholecystectomy, Other Additional Past Surgical Histo: BACK SURGERY; KNEE SURGERY Smoking: Non-smoker, Quit Greater Than 1 Year Alcohol Use: None Drug Use: None General Adult HPI: HPI: ".. 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 and I noticed my right foot seem more weak.. I got chronic stuff with numbness of it due to disc injury and back surgery ... didn't think much about it because it returned to baseline numbness. that was about 3 pm.. then at about six I had some blurred vision. .. that went away... I just had my vision checked out in October after a episode.. everything checked out okay... but I got to thinking about it and felt I should get checked out..I got bladder cancer.. and go to a oncologist at [facility].. I ve had surgery, BCG.. and now on chemotherapy. and been seeing a cardiology at .. .. Patient is a 65 year old male who presents with complaints of foot pain at then Pt. follows with Dr. Crews. Review of Systems: Review of Systems: Constitutional: Denies fever or chills Eyes: Complaints of short episodic blurred vision HENT: Denies nasal congestion or sore throat Respiratory: Denies cough or shortness of breath Cardiovascular: Denies chest pain or edema GI: Denies abdominal pain, nausea, vomiting, bloody stools or diarrhea : Denies dysuria Musculoskeletal: Denies back pain or joint pain Integument: Denies rash Neurologic: Complaints of right foot weakness. Endocrine: Denies polyuria or polydipsia Lymphatic: Denies swollen glands Psychiatric: Denies depression or anxiety Family History: Family History: Noncontributory presentation Current Medications: Current Meds: See nursing for home meds Allergies: Allergies: Allergies Coded Allergies Type Severity Reaction Last Updated Verified sunflower seed Allergy Severe Anaphylaxis 06/06/20 Yes Physical Exam: PE: Constitutional: , no acute distress, non-toxic appearance. [] HENT: Normocephalic, atraumatic, bilateral external ears normal, oropharynx moist, no oral exudates, nose normal. [] Eyes: PERRLA, EOMI, conjunctiva normal, no discharge. No field loss appreciated Neck: Normal range of motion, no tenderness, supple, no stridor. [] No bruits Cardiovascular:Heart rate regular rhythm, no murmur, PMI slightly the left Lungs & Thorax: Bilateral breath sounds equal at apex on auscultation [] Abdomen: Bowel sounds normal, soft, no tenderness, no masses, no pulsatile masses. [] Skin: Warm, dry, no erythema, no rash. [] Back: No tenderness, no CVA tenderness. Old surgical scar Extremities: No tenderness, no cyanosis, no clubbing, ROM intact, no edema. No cording appreciated Neurologic: Alert and oriented X 3, as all extremities on request, does have distal sensory. No new focal deficits noted. DTRs +2 patella brachial. Does have sensory loss in the right foot which is chronic Psychologic: Affect anxious, judgement normal, mood normal. [] EKG: EKG: My interpretation of EKG shows a sinus rhythm at 68 bpm. No findings of acute STEMI of contralateral changes. Time of EKG is 2006 hrs. [] Radiology/Procedures: Radiology/Procedures: [place] [address] IMAGING REPORT Signed PATIENT: REBECCA PRO ACCOUNT: [id number] : 1955 LOCATION: ER AGE: 65 SEX: M EXAM STATUS: REG ER ORD. PHYSICIAN: CASSIE BLANCO MD REASON: sensory and motor changes- transient- Visual, Rt.foot weak PROCEDURE: CT HEAD WO CONTRAST CT head without contrast PQRS statement: CT scans at this facility use dose reduction including either automated exposure control, iterative reconstructions, and /or weight based radiation dosing via mA and kV modification when appropriate to reduce radiation dose to as low as reasonably achievable. HISTORY: Sensory and motor changes. Transient visual loss. right foot weakness. FINDINGS: No intracranial hemorrhage, mass, hydrocephalus, extra-axial fluid collections or infarction. No acute ischemic change. Orbits, mastoids and bones are unremarkable. IMPRESSION: No acute abnormality. Electronically signed by: Saúl Talbert MD (01/14/2021 9:13 PM) [facility] [place] DICTATED AND SIGNED BY: SAÚL TALBERT MD DATE: 01/14/212106 CC: VINAYAK CREWS MD; CASSIE BLANCO MD ~MTH0 0 [][address] [address] [address] [address] IMAGING REPORT Signed PATIENT: REBECCA PRO ACCOUNT: [id number] : 1955 LOCATION: ER AGE: 65 SEX: M EXAM STATUS: REG ER ORD. PHYSICIAN: CASSIE BLANCO MD REASON: dyspnea PROCEDURE: PORTABLE CHEST 1V AP chest x-ray HISTORY: Dyspnea. COMPARISON: Chest x-ray December 15, 2020 FINDINGS: Azygous right upper lobe. Heart size normal. Mild tortuosity aortic arch is stable. No pneumothorax, pulmonary opacities or pleural effusions. Mild thoracic scoliosis and lower thoracic disc osteophytes. IMPRESSION: No acute process. Stable exam. Electronically signed by: Saúl Talbert MD (01/14/2021 9:58 PM) [facility] [place] DICTATED AND SIGNED BY: SAÚL TALBERT MD DATE: 01/14/212156 CC: VINAYAK CREWS MD; CASSIE BLANCO MD ~MTH0 0 IMAGING REPORT Signed PATIENT: REBECCA PRO ACCOUNT: [id number] : 1955 LOCATION: ER AGE: 65 SEX: M EXAM STATUS: REG ER ORD. PHYSICIAN: CASSIE BLANCO MD REASON: sensory and motor changes- transient- Visual, Rt.foot weak PROCEDURE: CT HEAD WO CONTRAST CT head without contrast PQRS statement: CT scans at this facility use dose reduction including either automated exposure control, iterative reconstructions, and /or weight based radiation dosing via mA and kV modification when appropriate to reduce radiation dose to as low as reasonably achievable. HISTORY: Sensory and motor changes. Transient visual loss. right foot weakness. FINDINGS: No intracranial hemorrhage, mass, hydrocephalus, extra-axial fluid collections or infarction. No acute ischemic change. Orbits, mastoids and bones are unremarkable. IMPRESSION: No acute abnormality. Electronically signed by: Saúl Talbert MD (01/14/2021 9:13 PM) [facility] [place] DICTATED AND SIGNED BY: SAÚL TALBERT MD DATE: 01/14/212106 CC: VINAYAK CREWS MD; CASSIE BLANCO MD ~MTH0 0 Heart Score: C/O Chest Pain: No HEART Score for Chest Pain: HEART Score for Chest Pain Response (Comments) Value History Slighlty/Non-Suspicious 0 ECG Normal 0 Age > 65 2 Risk Factors 1 or 2 Risk Factors 1 Troponin < Normal Limit 0 Total 3 Risk Factors: Risk Factors: DM, Current or recent (<one month) smoker, HTN, HLP, family history of CAD, obesity. Risk Scores: Score 0 - 3: 2.5% MACE over next 6 weeks - Discharge Home Score 4 - 6: 20.3% MACE over next 6 weeks - Admit for Clinical Observation Score 7 - 10: 72.7% MACE over next 6 weeks - Early Invasive Strategies Course & Med Decision Making: Course & Med Decision Making Pertinent Labs and Imaging studies reviewed. (See chart for details) Patient requesting discharge. Declines admission at this time. Does have a systolic the scheduled for this afternoon. Advised patient to make sure his urologist know that he did receive aspirin at this visit. Risk and benefits discussed at deferring Eliquis or Lovenox treatment pending evaluation of DVT. Patient follow-up primary care discussed with elevated D-dimer 3.93. This must be followed up. Discussed with primary ED findings. Impression: 1. Rt. foot weakness- transient 2. Visual changes - transient 3. TIA? 4. Elevated D-dimer 3.93 5. History of bladder cancer-has post resection, BCG and now chemotherapy [] Dragon Disclaimer: Dragon Disclaimer: This electronic medical record was generated, in whole or in part, using a voice recognition dictation system. Departure Departure: Referrals: VINAYAK CREWS MD (PCP) [place]isa Disclaimer This chart was dictated in whole or in part using Voice Recognition software in a busy, high-work load, and often noisy Emergency Department environment. It may contain unintended and wholly unrecognized errors or omissions. Dragon Disclaimer This chart was dictated in whole or in part using Voice Recognition software in a busy, high-work load, and often noisy Emergency Department environment. It may contain unintended and wholly unrecognized errors or omissions. CASSIE BLANCO MD Jan 14, 2021 20:01
[2021-01-14] MEDS: ASPIRIN 325 MG TABLET PO ONE (20:45)
[2021-01-14] MEDS: IV RINGERS SOLUTION,LACTATED 1,000 ML IV SCH (20:46)
[2021-01-14 20:49] LABS: BASO # 0.1 x10^3/uL (0.0-0.2); BASO % 1 % (0-3); EOS # 0.2 x10^3/uL (0.0-0.7); EOS % 3 % (0-3); HEMATOCRIT 42.9 % (39.0-53.0); HEMOGLOBIN 14.8 g/dL (13.0-17.5); LYMPH # 1.5 x10^3/uL (1.0-4.8); LYMPH % 19 % (24-48); MEAN CORPUSCULAR HEMOGLOBIN 33 pg (25-35); MEAN CORPUSCULAR HGB CONC 35 g/dL (31-37); MEAN CORPUSCULAR VOLUME 96 fL (79-100); MONO # 0.7 x10^3/uL (0.0-1.1); MONO % 9 % (0-9); NEUT # 5.7 x10^3uL (1.8-7.7); NEUT % 69 % (31-73); PLATELET COUNT 159 x10^3/uL (140-400); RED BLOOD COUNT 4.46 x10^6/uL (4.30-5.70); RED CELL DISTRIBUTION WIDTH 13.5 % (11.5-14.5); WHITE BLOOD COUNT 8.3 x10^3/uL (4.0-11.0)
[2021-01-14 20:58] LABS: CALCIUM 8.5 mg/dL (8.5-10.1); CREATININE 0.8 mg/dL (0.7-1.3); GFR 96.4; POTASSIUM 3.9 mmol/L (3.5-5.1)
[2021-01-14 21:12] LABS: ALBUMIN 3.5 g/dL (3.4-5.0); DIRECT BILIRUBIN 0.2 mg/dL (0.0-0.2); MAGNESIUM 1.9 mg/dL (1.8-2.4); TOTAL BILIRUBIN 0.9 mg/dL (0.2-1.0); TOTAL PROTEIN 6.6 g/dL (6.4-8.2)
--- NOTE | 2021-01-14 21:15 | RAD ---
CT head without contrast PQRS statement: CT scans at this facility use dose reduction including either automated exposure cont rol, iterative reconstructions, and /or weight based radiation dosing via mA and kV modification when appropriate to reduce radiation dose to as low as reasonably achievable. HISTORY: Sensory and motor changes. Transient visual loss. right foot weakness. FINDINGS: No intracranial hemorrhage, mass, hydrocephalus, extra-axial fluid collections or infarctio n. No acute ischemic change. Orbits, mastoids and bones are unremarkable. IMPRESSION: No acute abnormality. Electronically signed by: Christ Talbert MD (01/14/2021 9:13 PM) [facility]
--- NOTE | 2021-01-14 21:45 | EKG ---
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
[2021-01-14 21:51] LABS: BARBITURATES NEG (NEG); BENZODIAZEPINES NEG (NEG); CANNABINOIDS NEG (NEG); COCAINE NEG (NEG); METHADONE NEG (NEG); OPIATES NEG (NEG); PHENCYCLIDINE NEG (NEG)
--- NOTE | 2021-01-14 22:00 | RAD ---
AP chest x-ray HISTORY: Dyspnea. COMPARISON: Chest x-ray December 15, 2020 FINDINGS: Azygous right upper lobe. Heart size normal. Mild tortuosity aortic arch is stable. No pneu mothorax, pulmonary opacities or pleural effusions. Mild thoracic scoliosis and lower thoracic disc o steophytes. IMPRESSION: No acute process. Stable exam. Electronically signed by: Christ Talbert MD (01/14/2021 9:58 PM) [facility]
[2021-01-14 22:12] LABS: CLARITY,URINE CLEAR; COLOR,URINE YELLOW
[2021-01-14 22:13] LABS: BACTERIA,URINE 0 /HPF (0-FEW); BILIRUBIN,URINE NEG (NEG); GLUCOSE,URINE NEG (NEG); NITRITE,URINE NEG (NEG); UROBILINOGEN,URINE 0.2 mg/dL (0.2 mg/dL); WBC,URINE 0 /HPF (0-4)
[2021-01-14 22:18] LABS: AMPHETAMINE/METHAMPHETAMINE NEG (NEG)
[2021-01-14] MEDS ORDERED: CONTRAST GIVEN. MC PRN (22:45)
[2021-01-14] MEDS: IOHEXOL 350 MG/ML 100 ML VIAL. IV ONE (23:52)
[2021-01-15] MEDS ORDERED: ENOXAPARIN 40 MG/0.4 ML SYRINGE. SQ ONE (00:15)
[2021-01-15] MEDS ORDERED: ENOXAPARIN ** NOTE DOSE ** SYRINGE SQ ONE (00:30)
[2021-01-15] MEDS: ALBUTEROL SULFATE 8GM INHALER. INH ONE (00:30)
--- NOTE | 2021-01-15 03:08 | RAD ---
EXAMINATION: CT Pulmonary Angiogram INDICATION: Reason: syncope,dyspnea, OMNI 350, 100ml / Spl. Instructions: / History: COMPARISON: Same day chest radiograph TECHNIQUE: Using helical technique, CT data from the thoracic inlet through the upper abdomen was obt ained during rapid IV contrast infusion. The examination was timed to the pulmonary arterial system t o generate a CT angiographic study. 3D MIPS, sagittal and coronal reformats were generated. FINDINGS: Vascular: The study is diagnostic to the level of the segmental pulmonary arteries. There is adequate opacifica tion of the pulmonary arteries. Pulmonary arteries: No evidence of acute or chronic pulmonary embolism. The main pulmonary artery is dilated in size up to 3.5 cm maximal diameter, this can be seen in the setting of pulmonary hypertens ion. Thoracic aorta: Normal in size. Pulmonary veins: Normal drainage into the left atrium. Coronary arteries: Normal origins. Moderate calcified coronary atherosclerosis. Systemic veins: Within normal limits. Heart: The heart is normal in size without evidence of right heart strain. No pericardial effusion. Chest: Lungs/Pleura: The pulmonary parenchyma appears within normal limits. Azygous lobe redemonstrated. Dep endent bibasilar subsegmental atelectasis. No suspicious pulmonary nodules are visualized. No pleura l effusion or focal pleural lesion. Mediastinum: No pathologic mediastinal or hilar adenopathy The visualized thyroid and the esophagus a re unremarkable Axilla/Soft Tissue: No supraclavicular or axillary adenopathy. Regional soft tissues are within brandon l limits. Upper abdomen: The visualized upper abdomen appears unremarkable. Bones: No evidence of acute fractures or aggressive osseous lesions. IMPRESSION: Vascular: 1. No evidence of pulmonary embolism to the level of the segmental pulmonary arteries. Chest: 1. No acute cardiopulmonary process. Electronically signed by: Jerry Velasco DO (01/15/2021 3:05 AM) [facility]
[2021-01-15] MEDS: APIXABAN 5 MG TABLET. PO SCH (03:19)
[2021-01-15] MEDS ORDERED: ANTI-COAG MONITOR BY PHARMACY. MC PRN (03:30)
[2021-01-15 03:38] VITALS: BP 124/66
[2021-01-15] MEDS ORDERED: ONDANSETRON PF 4 MG/2 ML VIAL. IVP ONE (04:00)
== END 2021-01-15 03:48 | disposition home or self-care (01) ==
LOC: ER 19:54
DX: R53.1 Weakness (principal); R79.1 Abnormal coagulation profile; I25.10 Atherosclerotic heart disease of native coronary artery without angina pectoris; E78.00 Pure hypercholesterolemia, unspecified; I10 Essential (primary) hypertension; F10.20 Alcohol dependence, uncomplicated; Z20.822 Contact with and (suspected) exposure to COVID-19; Z85.51 Personal history of malignant neoplasm of bladder; Z87.442 Personal history of urinary calculi; Z86.73 Personal history of transient ischemic attack (TIA), and cerebral infarction without residual deficits; Z90.49 Acquired absence of other specified parts of digestive tract; Z88.8 Allergy status to other drugs, medicaments and biological substances; Y90.9 Presence of alcohol in blood, level not specified
CPT/HCPCS: 36415; 70450; 71045; 71275; 80048; 80076; 80307; 81001; 82550; 83735; 83880; 84443; 84484; 85025; 85379; 85610; 85730; 87426; 93005; 94640; 96360; 96361; 99285; C9803; J7120; Q9967; U0003; 94664

== ENCOUNTER 2021-04-18 08:41 | Emergency (ER) | payer MEDICARE, OTHER ==
[~2021-04-18] VITALS: Ht 182.9 cm; Wt 87.3 kg
[~2021-04-18 08:41] MED LIST changes: -LISI-517 PO; +LISI5TAB15 PO
--- NOTE | 2021-04-18 08:48 | PHYS DOC ---
Past History Past Medical History: Alcoholism, CAD, Cancer, High Cholesterol, Hypertension, Kidney Stones, Other Additional Past Medical Histor: spinal stenosis, neuropathy Past Surgical History: Cancer Surgery Additional Past Surgical Histo: spinal surgery, cardia cath Smoking: Non-smoker, Quit Greater Than 1 Year Alcohol Use: Occasionally Drug Use: None Adult General HPI HPI Patient is a 65yo male presenting via POV for chest pain. He reports chest pain began at 2am in his left pectoralis region that radiates to his neck, left shoulder and left elbow. He took nitroglycerin without relief. When he woke up the pain was still present and he took 4 motrin with no relief, but was able to complete his morning chores before arriving to the ER. He states his chest pain is 4/10. He has had a previous [place] in 2008 with heart cath intervention of the middle circumflex artery. He takes lisinopril, a statin and 81mg aspirin daily. He endorses working out 5 to 6 days per week and has maintained an active lifestyle since working in the . PMH of covid in May of 2020 which he attributes new dizziness and double vision along with loss of taste and smell in July/August that is being worked up with neurology. He is concerned that his chest pain may be due to residual effects of covid or exacerbation of his heart problems. Review of Systems Review of Systems Fourteen body systems of review of systems have been reviewed. See HPI for pertinent positives and negative responses, other juárez all other systems are negative, non-pertinent or non-contributory Allergies Allergies Allergies Coded Allergies Type Severity Reaction Last Updated Verified sunflower seed Allergy Severe Anaphylaxis 01/14/21 Yes Physical Exam Physical Exam Constitutional: Well developed, well nourished, no acute distress, non-toxic appearance. HENT: Normocephalic, atraumatic, bilateral external ears normal, oropharynx moist, no oral exudates, nose normal. Eyes: PERRLA, EOMI, conjunctiva normal, no discharge. Neck: Normal range of motion, no tenderness, supple, no stridor. Cardiovascular: Heart rate regular, sinus rhythm, no murmurs rubs or gallops Lungs & Thorax: Bilateral breath sounds clear to auscultation Abdomen: Bowel sounds normal, soft, no tenderness, no masses, no pulsatile masses. Nonsurgical abdomen, no peritoneal signs Skin: Warm, dry, no erythema, no rash. Back: No tenderness, no CVA tenderness. Extremities: No tenderness, no cyanosis, no clubbing, ROM intact, no edema. Neurologic: Alert and oriented X 3, grossly normal motor & sensory function, no focal deficits noted. Psychologic: Anxious affect and mood Current Patient Data Vital Signs Vital Signs Date Time Temp Pulse Resp B/P (MAP) Pulse Ox O2 Delivery O2 Flow Rate FiO2 04/18/21 09:42 92 136/84 Vital Signs Date Time Temp Pulse Resp B/P (MAP) Pulse Ox O2 Delivery O2 Flow Rate FiO2 04/18/21 09:42 92 136/84 Lab Results Laboratory Tests Test 04/18/21 08:48 04/18/21 10:04 04/18/21 10:52 04/18/21 12:10 White Blood Count 6.4 x10^3/uL Red Blood Count 4.58 x10^6/uL Hemoglobin 14.8 g/dL Hematocrit 43.5 % Mean Corpuscular Volume 95 fL Mean Corpuscular Hemoglobin 32 pg Mean Corpuscular Hemoglobin Concent 34 g/dL Red Cell Distribution Width 13.3 % Platelet Count 136 x10^3/uL Neutrophils (%) (Auto) 70 % Lymphocytes (%) (Auto) 20 % Monocytes (%) (Auto) 5 % Eosinophils (%) (Auto) 4 % Basophils (%) (Auto) 0 % Neutrophils # (Auto) 4.5 x10^3uL Lymphocytes # (Auto) 1.3 x10^3/uL Monocytes # (Auto) 0.3 x10^3/uL Eosinophils # (Auto) 0.3 x10^3/uL Basophils # (Auto) 0.0 x10^3/uL Sodium Level 138 mmol/L Potassium Level 4.0 mmol/L Chloride Level 102 mmol/L Carbon Dioxide Level 25 mmol/L Anion Gap 11 Blood Urea Nitrogen 17 mg/dL Creatinine 1.1 mg/dL Estimated GFR (Cockcroft-Gault) 66.8 BUN/Creatinine Ratio 15 Glucose Level 258 mg/dL Calcium Level 8.5 mg/dL Total Bilirubin 1.1 mg/dL Aspartate Amino Transf (AST/SGOT) 19 U/L Alanine Aminotransferase (ALT/SGPT) 27 U/L Alkaline Phosphatase 109 U/L Troponin I High Sensitivity 532 ng/L 512 ng/L RI-Fnm-A-Type Natriuretic Peptide 167 pg/mL Total Protein 6.9 g/dL Albumin 3.5 g/dL Albumin/Globulin Ratio 1.0 Lipase 71 U/L Prothrombin Time 14.9 SEC Prothromb Time International Ratio 1.4 Activated Partial Thromboplast Time 28 SEC D-Dimer (Chiara) 9.34 mg/L SARS-CoV-2 Antigen (Rapid) Negative Current Medications Medications (Trade) Dose Ordered Sig/Seb Route PRN Reason Start Time Stop Time Status Last Admin Dose Admin Aspirin (Aspirin Chewable) 162 mg 1X ONCE PO 04/18/21 09:30 04/18/21 09:35 DC 04/18/21 09:42 Nitroglycerin (Nitrostat) 0.4 mg PRN Q5MIN PRN SL CHEST PAIN 04/18/21 09:30 04/18/21 09:42 Heparin Sodium/ Dextrose 250 ml @ 10 mls/hr CONT PRN IV SEE I/O RECORD 04/18/21 10:30 04/18/21 10:56 Heparin Sodium (Porcine) (Heparin Sodium) 4,000 unit 1X ONCE IV 04/18/21 10:30 04/18/21 10:32 DC 04/18/21 10:53 Heparin Sodium (Porcine) (Heparin Sodium) 2,200 unit PRN Q6HRS PRN IV FOR PTT LESS THAN 24 SECONDS 04/18/21 10:30 Iohexol (Omnipaque 350 Mg/ml) 100 ml 1X ONCE IV 04/18/21 11:45 04/18/21 11:46 DC 04/18/21 11:49 EKG EKG EKG ordered and interpreted by myself 0856 hrs. as sinus tachycardia at 104 bpm, unremarkable intervals, no axis deviation, no ischemic findings, no STEMI EKG ordered and interpreted by myself at 1114 hrs. as sinus rhythm at 80 bpm, unremarkable intervals, no axis deviation, no acute ischemic findings, no STEMI Radiology/Procedures Radiology/Procedures Exam Date: 04/18/2021 9:15 AM XR CHEST 1V Indication: Reason: chest pain / Spl. Instructions: / History: . Comparison: January 14, 2021 FINDINGS/ IMPRESSION: The cardiac silhouette and pulmonary vasculature are within normal limits. There is no focal consolidation, pleural effusion or pneumothorax. The visualized osseous structures are intact. Electronically signed by: Gwyn Baum MD (04/18/2021 9:42 AM) [id number] ///////////////////////// EXAMINATION: CTA chest. Technique: Axial images with coronal and sagittal reconstructions with MIP technique are performed of chest with angiogram protocol. 100 mL of Isovue-370 administered intravenously. One or more of the following radiation dose reduction techniques was used: automated exposure control, adjustment of mA and/or KV according to patient size, and/or utilization of iterative reconstruction technique. HISTORY: 65 years Male Reason: shob, chest pain, elevated d dimer . COMPARISON: January 14, 2021. FINDINGS: The pulmonary arteries are well opacified with no filling defects to suggest pulmonary embolism. The ascending aorta is a at the upper limits of normal in caliber measuring 3.9 cm in size. The timing of the bolus is focused on the pulmonary arteries and the aorta lumen is not well evaluated. The heart size is normal. No pericardial effusion. There is no pleural effusion. There is a no mediastinal, hilar or axillary mass or lymphadenopathy. The lungs demonstrate no significant consolidation, mass or suspicious nodule. The osseous structures demonstrate the multilevel degenerative osteophytes. There is mild the scoliotic curvature in the thoracic spine convex to the right at the midthoracic level and convex to the left around the thoracolumbar junction. IMPRESSION: No pulmonary embolism. The thoracic aorta is at the upper limits of normal in size measuring 3.9 cm in caliber. Electronically signed by: Kehinde Aguilar MD (04/18/2021 12:23 PM) [id number] Heart Score C/O Chest Pain: Yes HEART Score for Chest Pain: HEART Score for Chest Pain Response (Comments) Value History Highly Suspicious 2 ECG Normal 0 Age > 65 2 Risk Factors >3 Risk Factors or Hx CAD 2 Troponin >3 x Normal Limit 2 Total 8 Risk Factors: Risk Factors: DM, Current or recent (<one month) smoker, HTN, HLP, family history of CAD, obesity. Risk Scores: Risk Factors: DM, Current or recent (<one month) smoker, HTN, HLP, family history of CAD, obesity. Course & Med Decision Making Course & Med Decision Making ABCs unremarkable HPI, PE and workup concerning for NSTEMI in high-risk cardiac patient with improved but ongoing chest pain despite ER intervention with x3 nitro, a total of 324mg ASA Heparin drip started. [facility] contacted and case reviewed, patient accepted for transfer for cardiology consultation as he sees their group in outpatient setting and likely need for heart cath Given the high probability of imminent or life threatening deterioration of the patients condition without intervention, the patient was immediately assessed by myself and the nurse, and cardiac monitoring initiated. The patient was also placed on oxygen and continuous pulse oximetry initiated. During the course of the patients stay, I spent a considerable amount of time at the bedside performing serial re-evaluations of the patients hemodynamic and clinical status because of the recognized potential threat to life or limb in this condition. Clinical management of this patient involved high complexity decision making to assess, manipulate, and support vital organ system failure. I then had a chance to review all of the available laboratory and radiographic studies obtained today, and I also reviewed old records available to me at the time. Sequential vital signs were obtained. Critical care time noted below was time spent engaged in work directly related to the individual patients care, not including time performing procedures; however it does include time spent at the immediate bedside or elsewhere on the floor or unit. TOTAL CRITICAL CARE TIME ELAPSED: 40mins BODY SYSTEM AT HIGHEST RISK: Cardiac. Dragon Disclaimer Dragon Disclaimer This electronic medical record was generated, in whole or in part, using a voice recognition dictation system. Departure Departure: Impression: Primary Impression: Non-STEMI (non-ST elevated myocardial infarction) Disposition: [facility] ([facility]) Admitting Physician: Other (dr burnett) Condition: STABLE Referrals: VINAYAK CREWS MD (PCP) EN DEJESUS DO Apr 18, 2021 08:48
--- NOTE | 2021-04-18 09:19 | EKG ---
[address] [address] Test Date: 2021-04-18 Test Time: 08:46:31 Pat Name: REBECCA PRO Department: Room: Gender: M Medical Auditor: GRACIELA : 1955 Requested By: EN DEJESUS Order Number: [id number] Reading MD: Ted Calvo Measurements Intervals [place] Rate: 104 P: 46 ND: 128 QRS: 67 QRSD: 88 T: 30 QT: 308 QTc: 411 Interpretive Statements SINUS TACHYCARDIA Electronically Signed On 04-20-2021 16:12:18 PLATFORM CONSULTANT by Ted Calvo
[2021-04-18] MEDS ORDERED: NITROGLYCERIN SUBLINGUAL 0.4 MG BOTTLE OF 25. SL PRN (09:30)
[2021-04-18] MEDS ORDERED: ASPIRIN CHEWABLE 81 MG TABLET. PO ONE (09:30)
[2021-04-18 09:37] LABS: BASO % 0 % (0-3); EOS # 0.3 x10^3/uL (0.0-0.7); EOS % 4 % (0-3); HEMATOCRIT 43.5 % (39.0-53.0); HEMOGLOBIN 14.8 g/dL (13.0-17.5); LYMPH # 1.3 x10^3/uL (1.0-4.8); LYMPH % 20 % (24-48); MEAN CORPUSCULAR HEMOGLOBIN 32 pg (25-35); MEAN CORPUSCULAR HGB CONC 34 g/dL (31-37); MEAN CORPUSCULAR VOLUME 95 fL (79-100); MONO # 0.3 x10^3/uL (0.0-1.1); MONO % 5 % (0-9); NEUT # 4.5 x10^3uL (1.8-7.7); NEUT % 70 % (31-73); PLATELET COUNT 136 x10^3/uL (140-400); RED BLOOD COUNT 4.58 x10^6/uL (4.30-5.70); RED CELL DISTRIBUTION WIDTH 13.3 % (11.5-14.5); WHITE BLOOD COUNT 6.4 x10^3/uL (4.0-11.0)
--- NOTE | 2021-04-18 09:44 | RAD ---
Exam Date: 04/18/2021 9:15 AM XR CHEST 1V Indication: Reason: chest pain / Spl. Instructions: / History: . Comparison: January 14, 2021 FINDINGS/ IMPRESSION: The cardiac silhouette and pulmonary vasculature are within normal limits. There is no focal consolidation, pleural effusion or pneumothorax. The visualized osseous structures are intact. Electronically signed by: Gwyn Baum MD (04/18/2021 9:42 AM) [id number]
[2021-04-18 09:47] LABS: CALCIUM 8.5 mg/dL (8.5-10.1); CREATININE 1.1 mg/dL (0.7-1.3); GFR 66.8
[2021-04-18 09:59] LABS: ALBUMIN 3.5 g/dL (3.4-5.0); TOTAL BILIRUBIN 1.1 mg/dL (0.2-1.0); TOTAL PROTEIN 6.9 g/dL (6.4-8.2)
[2021-04-18] MEDS ORDERED: HEPARIN for IV BOLUS 10,000 UNIT/10 ML VIAL. IV ONE (10:30)
[2021-04-18] MEDS ORDERED: HEPARIN 25,000UTS/250ML PREMIX 250 ML IV PRN (10:30)
[2021-04-18] MEDS ORDERED: HEPARIN for IV BOLUS 10,000 UNIT/10 ML VIAL. IV PRN (10:30)
[2021-04-18] MEDS ORDERED: IOHEXOL 350 MG/ML 100 ML VIAL. IV ONE (11:45)
--- NOTE | 2021-04-18 11:59 | EKG ---
[address] [address] Test Date: 2021-04-18 Test Time: 11:05:48 Pat Name: REBECCA PRO Department: Room: Gender: M Tunnel Heading Inspector: GRACIELA : 1955 Requested By: EN DEJESUS Order Number: [id number] Reading MD: Ted Calvo Measurements Intervals [place] Rate: 80 P: 35 [place]: 142 QRS: 41 QRSD: 84 T: 22 QT: 334 QTc: 388 Interpretive Statements SINUS RHYTHM MILD NON SPECIFIC ST CHANGES Electronically Signed On 04-20-2021 16:10:06 NURSE CHEMICAL DEPENDENCY by Ted Calvo
--- NOTE | 2021-04-18 12:26 | RAD ---
Site ID: [id number] EXAMINATION: CTA chest. Technique: Axial images with coronal and sagittal reconstructions with MIP technique are performed of chest with angiogram protocol. 100 mL of Isovue-370 administered intravenously. One or more of the following radiation dose reduction techniques was used: automated exposure control , adjustment of mA and/or KV according to patient size, and/or utilization of iterative reconstructio n technique. HISTORY: 65 years Male Reason: shob, chest pain, elevated d dimer . COMPARISON: January 14, 2021. FINDINGS: The pulmonary arteries are well opacified with no filling defects to suggest pulmonary embolism. The ascending aorta is a at the upper limits of normal in caliber measuring 3.9 cm in size. The timing of the bolus is focused on the pulmonary arteries and the aorta lumen is not well evaluated. The heart size is normal. No pericardial effusion. There is no pleural effusion. There is a no medias tinal, hilar or axillary mass or lymphadenopathy. The lungs demonstrate no significant consolidation, mass or suspicious nodule. The osseous structures demonstrate the multilevel degenerative osteophytes. There is mild the scoliot ic curvature in the thoracic spine convex to the right at the midthoracic level and convex to the lef t around the thoracolumbar junction. IMPRESSION: No pulmonary embolism. The thoracic aorta is at the upper limits of normal in size measuring 3.9 cm i n caliber. Electronically signed by: Kehinde Aguilar MD (04/18/2021 12:23 PM) [id number]
[2021-04-19 01:40] VITALS: BP 151/94
== END 2021-04-19 02:13 | disposition short-term general hospital (02) ==
LOC: ER 08:41
DX: I21.4 Non-ST elevation (NSTEMI) myocardial infarction (principal); F10.20 Alcohol dependence, uncomplicated; I25.10 Atherosclerotic heart disease of native coronary artery without angina pectoris; E78.00 Pure hypercholesterolemia, unspecified; I10 Essential (primary) hypertension; Z20.822 Contact with and (suspected) exposure to COVID-19; Z87.442 Personal history of urinary calculi; Z87.891 Personal history of nicotine dependence; Z88.8 Allergy status to other drugs, medicaments and biological substances; Y90.9 Presence of alcohol in blood, level not specified
CPT/HCPCS: 36415; 71045; 71275; 80053; 83690; 83880; 84484; 85025; 85379; 85610; 85730; 87426; 93005; 96365; 96366; 96376; 99285; J1644; Q9967; U0003

== ENCOUNTER 2021-05-30 15:49 | Emergency (ER) | payer MEDICARE, OTHER ==
[~2021-05-30] VITALS: Ht 182.9 cm; Wt 87.3 kg
--- NOTE | 2021-05-30 16:15 | PHYS DOC ---
Past History Past Medical History: Alcoholism, CAD, Cancer, High Cholesterol, Hypertension, Kidney Stones, Other Additional Past Medical Histor: spinal stenosis, neuropathy Past Surgical History: Cancer Surgery Additional Past Surgical Histo: spinal surgery, cardia cath Smoking: Non-smoker, Quit Greater Than 1 Year Alcohol Use: Occasionally Drug Use: None Adult General Chief Complaint Chief Complaint: WEAKNESS/GENERALIZED HPI HPI Patient is a 65-year-old male presenting via POV for right lower extremity motor weakness. Reports onset of symptoms this morning at 3:30 AM when he woke up from sleep to use the bathroom. States he had more difficulty than usual ambulating. Reports symptoms were constant since onset and he " just felt off" today. States today is the 1 year anniversary of his passing away from [email or web address] and he has been more tearful than usual. Reports ongoing symptoms worried daughter whom he lives with prompting him to be transported to our facility for evaluation. Review of Systems Review of Systems Fourteen body systems of review of systems have been reviewed. See HPI for pertinent positives and negative responses, other juárez all other systems are negative, non-pertinent or non-contributory Allergies Allergies Allergies Coded Allergies Type Severity Reaction Last Updated Verified sunflower seed Allergy Severe Anaphylaxis 01/14/21 Yes Physical Exam Physical Exam General: Appears well, non toxic, and comfortable Skin: Warm, dry. Normal for ethnicity. HEENT: Atraumatic. PERRLA. Moist mucous membranes. Neck: Trachea midline. Normal ROM. Respiratory: Normal WOB. CTAB w/o w/r/r. No tachypnea. Cardiovascular: Regular rate and rhythm. Normal peripheral perfusion. No edema. Abdomen: Soft. Non tender. No distension. Back: Normal ROM. Musculoskeletal: No swelling or deformity. Neuro: Alert and oriented x 4. MAEE. GCS 15. Normal FNF. Negative pronator drift. Normal heel to powell. Normal Kelli. CN II-XII intact. Normal strength and sensation. Normal speech. Psych: Tearful affect, depressed mood Current Patient Data Vital Signs Vital Signs Date Time Temp Pulse Resp B/P (MAP) Pulse Ox O2 Delivery O2 Flow Rate FiO2 05/30/21 15:50 98.3 93 16 110/84 (93) 98 Room Air Vital Signs Date Time Temp Pulse Resp B/P (MAP) Pulse Ox O2 Delivery O2 Flow Rate FiO2 05/30/21 19:50 80 23 137/90 (106) 97 Room Air 05/30/21 15:50 98.3 Lab Results Laboratory Tests Test 05/30/21 16:20 05/30/21 16:28 05/30/21 18:00 White Blood Count 4.4 x10^3/uL Red Blood Count 4.24 x10^6/uL Hemoglobin 13.8 g/dL Hematocrit 40.0 % Mean Corpuscular Volume 95 fL Mean Corpuscular Hemoglobin 33 pg Mean Corpuscular Hemoglobin Concent 35 g/dL Red Cell Distribution Width 13.3 % Platelet Count 126 x10^3/uL Neutrophils (%) (Auto) 62 % Lymphocytes (%) (Auto) 24 % Monocytes (%) (Auto) 12 % Eosinophils (%) (Auto) 1 % Basophils (%) (Auto) 0 % Neutrophils # (Auto) 2.8 x10^3uL Lymphocytes # (Auto) 1.1 x10^3/uL Monocytes # (Auto) 0.5 x10^3/uL Eosinophils # (Auto) 0.0 x10^3/uL Basophils # (Auto) 0.0 x10^3/uL Sodium Level 138 mmol/L Potassium Level 3.7 mmol/L Chloride Level 102 mmol/L Carbon Dioxide Level 28 mmol/L Anion Gap 8 Blood Urea Nitrogen 11 mg/dL Creatinine 0.9 mg/dL Estimated GFR (Cockcroft-Gault) 84.2 Glucose Level 97 mg/dL Calcium Level 8.6 mg/dL Troponin I High Sensitivity 772 ng/L Ethyl Alcohol Level < 10 mg/dL Prothrombin Time 11.7 SEC Prothromb Time International Ratio 1.1 Activated Partial Thromboplast Time 24 SEC Influenza Type A (Rapid) Negative Influenza Type B (Rapid) Negative SARS-CoV-2 Antigen (Rapid) Negative Current Medications Medications (Trade) Dose Ordered Sig/Seb Route PRN Reason Start Time Stop Time Status Last Admin Dose Admin Aspirin (Aspirin Chewable) 162 mg 1X ONCE PO 05/30/21 17:15 05/30/21 17:16 DC 05/30/21 18:00 EKG EKG EKG ordered and interpreted by myself at 1710 hrs. as sinus rhythm at 78 bpm, unremarkable intervals, no axis deviation, no obvious ischemic findings, no STEMI Radiology/Procedures Radiology/Procedures CT STROKE HEAD W/O History: Right lower extremity weakness. Comparison: CT head 01/14/2021 Technique: Noncontrast CT imaging was performed of the head. Findings: No intracranial hemorrhage. No mass effect. No hydrocephalus. No evidence of acute territorial infarction. Imaged orbits are unremarkable. Imaged paranasal sinuses and mastoid air cells are clear. The scalp and calvarium are unremarkable. Impression: 1. No acute intracranial abnormality. ////////////////////// Study: XR CHEST 1V Indication: Right lower extremity weakness. Comparison: 04/18/2021 Findings: Unchanged configuration of the cardiomediastinal silhouette. Azygos fissure again noted. Suspected mild atelectasis at the lung bases. No pleural effusion, lobar consolidation or pneumothorax. Gas adjacent to the diaphragm is contained within bowel. No newly apparent osseous abnormality. Impression: No acute radiographic abnormality of the chest. Electronically signed by: BOZENA HORNER MD (05/30/2021 8:45 PM) [facility] Heart Score C/O Chest Pain: No HEART Score for Chest Pain: HEART Score for Chest Pain Response (Comments) Value History Moderately Suspicious 1 ECG Nonspecific Repolarizatio 1 Age > 65 2 Risk Factors >3 Risk Factors or Hx CAD 2 Troponin >3 x Normal Limit 2 Total 8 Risk Factors: Risk Factors: DM, Current or recent (<one month) smoker, HTN, HLP, family history of CAD, obesity. Risk Scores: Risk Factors: DM, Current or recent (<one month) smoker, HTN, HLP, family history of CAD, obesity. Course & Med Decision Making Course & Med Decision Making ABCs unremarkable on arrival Patient initially triaged as code stroke given reported motor deficits of right lower extremity. Seen immediately on triage by myself and RN. NIH stroke scale negative. POC glucose unremarkable. CT head unremarkable Subsequent history which was limited by patient, physical exam and comprehensive ER work-up obtained that was concerning for elevated troponin without any obvious/reported chest pain Patient's daughter who is an ER nurse presented in help clarify history. Patient has been in extremely more anxious and depressed given passing of his . He has been well followed in outpatient setting by [facility] cardiology team and pending heart cath this upcoming Friday I contacted [facility] regarding patient with elevated troponin and patient was ultimately accepted for hospital transfer. I notified patient and daughter who agreed to need for transfer. All questions and concerns addressed. Patient pending hospital transfer at time of my shift change Please defer to Dr. Marquez's documentation regarding future care of patient while in ER setting pending hospital transfer Dragon Disclaimer Dragon Disclaimer This electronic medical record was generated, in whole or in part, using a voice recognition dictation system. Departure Departure: Impression: Primary Impression: Elevated troponin Disposition: [address] [place] [address] ([facility]) Admitting Physician: Other (hoos) Condition: STABLE Referrals: VINAYAK CREWS MD (PCP) EN DEJESUS DO May 30, 2021 16:15
[2021-05-30 16:42] LABS: BASO % 0 % (0-3); EOS % 1 % (0-3); HEMOGLOBIN 13.8 g/dL (13.0-17.5); LYMPH # 1.1 x10^3/uL (1.0-4.8); LYMPH % 24 % (24-48); MEAN CORPUSCULAR HEMOGLOBIN 33 pg (25-35); MEAN CORPUSCULAR HGB CONC 35 g/dL (31-37); MEAN CORPUSCULAR VOLUME 95 fL (79-100); MONO # 0.5 x10^3/uL (0.0-1.1); MONO % 12 % (0-9); NEUT # 2.8 x10^3uL (1.8-7.7); NEUT % 62 % (31-73); PLATELET COUNT 126 x10^3/uL (140-400); RED BLOOD COUNT 4.24 x10^6/uL (4.30-5.70); RED CELL DISTRIBUTION WIDTH 13.3 % (11.5-14.5); WHITE BLOOD COUNT 4.4 x10^3/uL (4.0-11.0)
[2021-05-30 17:04] LABS: CALCIUM 8.6 mg/dL (8.5-10.1); CREATININE 0.9 mg/dL (0.7-1.3); GFR 84.2; POTASSIUM 3.7 mmol/L (3.5-5.1)
[2021-05-30] MEDS ORDERED: ASPIRIN CHEWABLE 81 MG TABLET. PO ONE (17:15)
[2021-05-30 18:29] LABS: INFLUENZA A PATIENT NEGATIVE (NEGATIVE); INFLUENZA B PATIENT NEGATIVE (NEGATIVE)
[2021-05-30 19:50] VITALS: BP 137/90
--- NOTE | 2021-05-30 20:02 | RAD ---
CT STROKE HEAD W/O History: Right lower extremity weakness. Comparison: CT head 01/14/2021 Technique: Noncontrast CT imaging was performed of the head. Findings: No intracranial hemorrhage. No mass effect. No hydrocephalus. No evidence of acute territorial infar ction. Imaged orbits are unremarkable. Imaged paranasal sinuses and mastoid air cells are clear. The scalp a nd calvarium are unremarkable. Impression: 1. No acute intracranial abnormality. Findings discussed with EN DEJESUS DO based on preliminary review by Dr. Castro at the time of the exam. FOR INTERNAL CODING PURPOSES RESULT CODE: (C) ----- Exposure: One or more of the following individualized dose reduction techniques were utilized for thi s examination: 1. Automated exposure control 2. Adjustment of the mA and/or kV according to patient size 3. Use of iterative reconstruction technique. Electronically signed by: Brandon Lorenzo MD (05/30/2021 8:00 PM) [facility]
--- NOTE | 2021-05-30 20:48 | RAD ---
Study: XR CHEST 1V Indication: Right lower extremity weakness. Comparison: 04/18/2021 Findings: Unchanged configuration of the cardiomediastinal silhouette. Azygos fissure again noted. Suspected mi ld atelectasis at the lung bases. No pleural effusion, lobar consolidation or pneumothorax. Gas adjac ent to the diaphragm is contained within bowel. No newly apparent osseous abnormality. Impression: No acute radiographic abnormality of the chest. Electronically signed by: BOZENA HORNER MD (05/30/2021 8:45 PM) [facility]
--- NOTE | 2021-05-31 06:19 | EKG ---
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
--- NOTE | 2021-06-01 06:38 | EKG ---
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
== END 2021-05-30 19:55 | disposition short-term general hospital (02) ==
LOC: ER 15:49
DX: R77.8 Other specified abnormalities of plasma proteins (principal); F10.20 Alcohol dependence, uncomplicated; I25.10 Atherosclerotic heart disease of native coronary artery without angina pectoris; E78.00 Pure hypercholesterolemia, unspecified; I10 Essential (primary) hypertension; Z20.822 Contact with and (suspected) exposure to COVID-19; Z87.442 Personal history of urinary calculi; Z88.8 Allergy status to other drugs, medicaments and biological substances; Z87.891 Personal history of nicotine dependence; Y90.0 Blood alcohol level of less than 20 mg/100 ml
CPT/HCPCS: 36415; 70450; 71045; 80048; 84484; 85025; 85610; 85730; 87428; 93005; 99285; C9803; G0480; U0003